=== PATIENT | male | born 1945 | race Caucasian/White ===

== ENCOUNTER 2017-05-07 15:49 | Emergency (ER) | payer MEDICARE, OTHER ==
[~2017-05-07] VITALS: Ht 172.7 cm; Wt 59.0 kg
[~2017-05-07 15:49] MED LIST: AMLODIPINE BESYL5 MG PO; ATORVASTATIN CA10 MG PO; FLOMAX0.4 MG PO; METOPROLOL PO; PANTOPRAZOLE SO40 MG PO
[2017-05-07 17:52] LABS: KETONES,URINE 2+ (NEGATIVE); LEUKOCYTE ESTERASE ,URINE NEGATIVE (NEGATIVE); NITRITE,URINE NEGATIVE (NEGATIVE); PROTEIN,URINE DIPSTICK 1+ (NEGATIVE); URINE UROBILINOGEN 4 mg/dL (0.2 - 1)
[2017-05-07 17:53] LABS: BILIRUBIN,URINE 1+ (NEGATIVE); CLARITY,URINE SL CLOUDY (CLEAR); COLOR,URINE YELLOW (YELLOW)
[2017-05-07 17:57] LABS: BACTERIA,URINE RARE /HPF; EPITHELIAL CELLS,URINE RARE /LPF
[2017-05-07] MEDS ORDERED: KETOROLAC TROMETHAMINE 30 MG/ML VIAL IV STA (18:55)
[2017-05-07] MEDS ORDERED: ACETAMINOPHEN/CODEINE 300MG - 30MG TAB PO ONE (19:00)
[2017-05-07] MEDS ORDERED: SODIUM CHLORIDE 0.9% 1000ML 1,000 ML IV SCH (19:00)
--- NOTE | 2017-05-07 20:23 | Diagnostic Imaging Report ---
RIBS UNILAT W/CXR - 5 views HISTORY: Status post fall. Right-sided pain. COMPARISON: 03/15/2016 FINDINGS: See below. IMPRESSION: Minimally displaced fracture of the posterolateral right 9th rib as well as nondisplaced fracture of the posterior 10th rib. No lung consolidation. No visible pneumothorax. Signed by: Dr. Gabe Love MD on 05/07/2017 8:20 PM
--- NOTE | 2017-05-07 20:25 | Diagnostic Imaging Report ---
THORACIC SPINE AP LA - 5 views HISTORY: Pain. Status post fall. COMPARISON: None available. FINDINGS: Limited by generalized demineralization. No acute displaced fracture. Osseous alignment is within normal limits. Vertebral body heights are maintained. Multilevel degenerative changes. IMPRESSION: No acute radiographic abnormality. Signed by: Dr. Gabe Love MD on 05/07/2017 8:22 PM
--- NOTE | 2017-05-07 20:27 | Diagnostic Imaging Report ---
Cervical Spine, 3 views HISTORY: Pain COMPARISON: None. FINDINGS: Limited sensitivity for detection of subtle fractures and ligamentous abnormalities. On the lateral view, the cervical spine is visualized from the skull base to C5. Limited for evaluation of C6 and C7 on lateral view. The alignment is normal. Vertebral body heights are maintained. No acute displaced fracture involving the visualized cervical spine. Unremarkable prevertebral soft tissues. IMPRESSION: Limited as above. Visualized cervical spine is unremarkable. Signed by: Dr. Gabe Love MD on 05/07/2017 8:23 PM
--- NOTE | 2017-05-07 20:29 | Diagnostic Imaging Report ---
Lumbar Spine Radiographs: 5 views HISTORY: Pain COMPARISON: None available. DISCUSSION: Some of the osseous structures are partially obscured by stool and bowel gas. There are five non-rib bearing lumbar vertebral bodies. The alignment of the spine is within normal limits. Vertebral body heights are maintained. No displaced fracture or compression deformity is identified. L5-S1 facet arthropathy. Degenerative changes, especially in the upper lumbar spine. Severe vascular calcifications. IMPRESSION: No acute radiographic abnormality. Degenerative changes. Signed by: Dr. Gabe Love MD on 05/07/2017 8:25 PM
[2017-05-07 21:12] VITALS: BP 162/80
== END 2017-05-07 21:23 | disposition home or self-care (01) ==
LOC: ER 15:49
DX: M54.6 Pain in thoracic spine (principal); S22.41XA Multiple fractures of ribs, right side, initial encounter for closed fracture; W01.198A Fall on same level from slipping, tripping and stumbling with subsequent striking against other object, initial encounter; Y92.003 Bedroom of unspecified non-institutional (private) residence as the place of occurrence of the external cause; I10 Essential (primary) hypertension; I51.9 Heart disease, unspecified; Z86.73 Personal history of transient ischemic attack (TIA), and cerebral infarction without residual deficits; Z85.46 Personal history of malignant neoplasm of prostate; F17.210 Nicotine dependence, cigarettes, uncomplicated
CPT/HCPCS: 71101; 72040; 72072; 72110; 81001; 87086; 99283; J1885; J7030

== ENCOUNTER 2018-05-08 14:34 | Emergency (ER) | payer MEDICARE ==
[~2018-05-08] VITALS: Ht 172.7 cm; Wt 59.0 kg
--- OUTSIDE RECORDS SUMMARY | 2018-05-08 14:36 | XMS REPORT ---
[facility] Address Unknown Phone Unavailable Care Team Providers Care Archivist [employer] History Name Role Phone Wilder MEEHAN Unavailable Unavailable Problems This patient has no known problems. Allergies, Adverse Reactions, Alerts This patient has no known allergies or adverse reactions. Medications This patient has no known medications. Results Test Description Test Time Test Comments Text Results Atomic Results Result Comments RIBS UNILAT W/CXR [place] [address] Patient Name: VALERIE ALFARO MR #: [id number] : 1945 Age/Sex: 71/M Req #: [id number] Adm Physician: Ordered by: SCOTT BASURTO NP Report #: [id number] Location: ER Room/Bed: Procedure: [id number] DX/RIBS UNILAT W/CXR Exam Date: 05/07/17 Exam Time: 1929 REPORT STATUS: Signed RIBS UNILAT W/CXR - 5 views HISTORY: Status post fall. Right-sided pain. COMPARISON: 03/15/2016 FINDINGS: See below. IMPRESSION: Minimally displaced fracture of the posterolateral right 9th rib as well as nondisplaced fracture of the posterior 10th rib. No lung consolidation. No visible pneumothorax. Signed by: Dr. Gabe Acharya MD on 05/07/2017 8:20 PM Dictated By: GABE ACHARYA MD 19 Transcribed By: KRISTEN on 05/07/172019 COPY TO: SCOTT BASURTO NP SP LUMBAR, COMPLETE MIN 4VW [place] [id number] [place] [address] Patient Name: VALERIE ALFARO MR #: [id number] : 1945 Age/Sex: 71/M Req #: [id number] Adm Physician: Ordered by: MARCEL MEEHAN MD Report #: [id number] Location: ER Room/Bed: Procedure: [id number] DX/SP LUMBAR, COMPLETE MIN 4VW Exam Date: 05/07/17 Exam Time: 1929 REPORT STATUS: Signed Lumbar Spine Radiographs: 5 views HISTORY: Pain COMPARISON: None available. DISCUSSION: Some of the osseous structures are partially obscured by stool and bowel gas. There are five non-rib bearing lumbar vertebral bodies. The alignment of the spine is within normal limits. Vertebral body heights are maintained. No displaced fracture or compression deformity is identified. L5-S1 facet arthropathy. Degenerative changes, especially in the upper lumbar spine. Severe vascular calcifications. IMPRESSION: No acute radiographic abnormality. Degenerative changes. Signed by: Dr. Gabe Acharya MD on 05/07/2017 8:25 PM Dictated By: GABE ACHARYA MD 24 Transcribed By: KRISTEN on 05/07/172024 COPY TO: MARCEL MEEHAN MD THORACIC SPINE AP LA [place] [address] Patient Name: VALERIE ALFARO MR #: [id number] : 1945 Age/Sex: 71/M Req #: [id number] Adm Physician: Ordered by: MARCEL MEEHAN MD Report #: [id number] Location: ER Room/Bed: Procedure: [id number] DX/THORACIC SPINE AP LA Exam Date: 05/07/17 Exam Time: 1929 REPORT STATUS: Signed THORACIC SPINE AP LA - 5 views HISTORY: Pain. Status post fall. COMPARISON: None available. FINDINGS: Limited by generalized demineralization. No acute displaced fracture. Osseous alignment is within normal limits. Vertebral body heights are maintained. Multilevel degenerative changes. IMPRESSION: No acute radiographic abnormality. Signed by: Dr. Gabe Acharya MD on 05/07/2017 8:22 PM Dictated By: GABE ACHARYA MD 21 Transcribed By: KRISTEN on 05/07/172021 COPY TO: MARCEL MEEHAN MD C-SPINE 2 VIEWS AP LATERAL [place] [address] Patient Name: VALERIE ALFARO MR #: [id number] : 1945 Age/Sex: 71/M Req #: [id number] Adm Physician: Ordered by: MARCEL MEEHAN MD Report #: [id number] Location: ER Room/Bed: Procedure: [id number] DX/C-SPINE 2 VIEWS AP LATERAL Exam Date: 05/07/17 Exam Time: 1929 REPORT STATUS: Signed Cervical Spine, 3 views HISTORY: Pain COMPARISON: None. FINDINGS: Limited sensitivity for detection of subtle fractures and ligamentous abnormalities. On the lateral view, the cervical spine is visualized from the skull base to C5. Limited for evaluation of C6 and C7 on lateral view. The alignment is normal. Vertebral body heights are maintained. No acute displaced fracture involving the visualized cervical spine. Unremarkable prevertebral soft tissues. IMPRESSION: Limited as above. Visualized cervical spine is unremarkable. Signed by: Dr. Gabe Acharya MD on 05/07/2017 8:23 PM Dictated By: GABE ACHARYA MD 22 Transcribed By: KRISTEN on 05/07/172022 COPY TO: MARCEL MEEHAN MD
--- NOTE | 2018-05-08 17:13 | Diagnostic Imaging Report ---
Exam: Left foot series, 3 views. Clinical History: Pain and swelling, bruise on the left Comparison: None. Findings: 3 views of the left foot. There is mildly decreased bone mineralization. Negative for acute, displaced fracture or dislocation. Mild degenerative changes in the first toe metatarsophalangeal joint. Mild soft tissue swelling in the dorsal aspect of the foot. Impression: 1. Mild soft tissue swelling in the dorsal aspect of the foot, without acute, displaced fracture or dislocation. Signed by: Dr. Agustín Santos M.D. on 05/08/2018 5:10 PM
--- NOTE | 2018-05-08 17:14 | Diagnostic Imaging Report ---
Exam: Left Ankle Series. History: Pain and swelling Comparison: None. DISCUSSION: 3 views of the left ankle. There is mildly decreased bone mineralization. No evidence of acute, displaced fracture or dislocation. Ankle mortise is preserved.No osteochondral lesion. No abnormal soft tissue calcification or mass. Moderate soft tissue swelling surrounding the ankle. IMPRESSION: 1. Moderate soft tissue swelling surrounding the ankle, without underlying acute, displaced fracture. The staff physician below has personally reviewed this exam on the date of dictation. Signed by: Dr. Agustín Santos M.D. on 05/08/2018 5:11 PM
== END 2018-05-08 19:33 | disposition home or self-care (01) ==
LOC: ER 14:34
DX: S93.432A Sprain of tibiofibular ligament of left ankle, initial encounter (principal); W10.8XXA Fall (on) (from) other stairs and steps, initial encounter; Y92.89 Other specified places as the place of occurrence of the external cause; I10 Essential (primary) hypertension; Z85.46 Personal history of malignant neoplasm of prostate; Z86.73 Personal history of transient ischemic attack (TIA), and cerebral infarction without residual deficits
CPT/HCPCS: 99284

== ENCOUNTER 2018-06-11 10:00 | Outpatient (RCR) | payer MEDICARE | END 2018-06-12 | LOC: PT 10:00 | PROVIDERS: ATTEND Orthopaedic Surgery | DX: S93.492A Sprain of other ligament of left ankle, initial encounter (principal); M25.572 Pain in left ankle and joints of left foot; M25.472 Effusion, left ankle; M25.672 Stiffness of left ankle, not elsewhere classified; M62.81 Muscle weakness (generalized) | CPT/HCPCS: 97139 ==

== ENCOUNTER → 2019-07-22 | Outpatient (CLI) | payer MEDICARE ==
--- NOTE | 2019-07-22 11:56 | Diagnostic Imaging Report ---
EXAMINATION: CHEST 2 VIEWS INDICATION: Cough COMPARISON: Chest radiograph 02/25/2019 FINDINGS: LINES/TUBES:None LUNGS:The lungs are hyperinflated. Bilateral upper lobe predominant emphysematous changes. Mild peripheral patchy opacities at both lung bases. PLEURA:No pleural effusion or pneumothorax. MEDIASTINUM:The cardiomediastinal silhouette appears unchanged in size and shape. Atherosclerotic calcifications of the thoracic aorta. BONES/SOFT TISSUES:No acute osseous injury. Unchanged bilateral old healed rib fractures. ABDOMEN:No free air under the diaphragm. IMPRESSION: Hyperinflated lungs with emphysematous changes. Mild peripheral patchy opacities at both lung bases may represent aspiration and/or pneumonia in the proper clinical setting. Signed by: Princess Vazquez MD on 07/22/2019 11:53 AM
== END ==
LOC: RAD 10:47
PROVIDERS: ATTEND Internal Medicine
DX: R05 Cough (principal)
CPT/HCPCS: 71046

== ENCOUNTER → 2019-09-10 | Outpatient (CLI) | payer MEDICARE ==
--- NOTE | 2019-09-10 11:29 | Diagnostic Imaging Report ---
CT of the chest. Comparison: 08/04/2019 Clinical History: Lower lobe infection Technique: Helical CT scan of the chest was performed from just above the thoracic inlet through the adrenal glands. Intravenous contrast administration was not utilized. Coronal and sagittal reconstructions were generated from the raw data. Multiple images were submitted for interpretation. This exam was performed according to our departmental dose-optimization program which includes automated exposure control, adjustment of the mA and/or kV according to patient size Discussion: Lung david: There is centrilobular emphysema most pronounced in the upper lobes. The lungs are hyperinflated. This also supports the diagnosis of emphysema. Importantly there are changes in the right lower lobe posterior basal segment have not changed significantly. There is presence of air space opacity with architectural distortion of the lung, spiculated margins and septal thickening. It is contiguous with the visceral pleura posteriorly. Another tiny area of opacity previously seen just lateral to this consolidation has improved. The previously seen tree-in-bud opacities have improved or largely resolved. The differential diagnosis includes infection and inflammation but neoplasm especially given presence of emphysema, needs to be ruled out. The subjacent pleural effusion has improved. Central airways: Unremarkable Pleural spaces and pleura: As above Pulmonary topher: Normal Mediastinum: Small mediastinal lymph nodes none of which meet the size criteria for abnormality. Cardiac chambers and pericardium: Coronary artery calcification. No significant cardiac abnormality. Pericardium unremarkable. Systemic great vessels: Atherosclerotic calcification of aorta and its major branches. Central pulmonary vessels: Unremarkable. Thyroid: Unremarkable Lymph nodes: As above Azygos vein: Markable The esophagus: Unremarkable. Thoracic duct: Unremarkable Osseous structures: Degenerative changes Upper abdomen: Unremarkable Body wall: Unremarkable Breasts: Minimal gynecomastia Axilla: Unremarkable Lower neck: Minimal atherosclerotic calcification of the left common carotid artery. Impression: No significant change in the large right lower lobe opacity compared to the CT done a month ago. The differential diagnosis includes infection and inflammation but a neoplasm should be ruled out. Tissue sampling may be considered. Signed by: Mehran Wilkerson MD on 09/10/2019 11:26 AM
== END ==
LOC: CT 09:36
PROVIDERS: ATTEND Internal Medicine Critical Care Medicine
DX: R91.8 Other nonspecific abnormal finding of lung field (principal)
CPT/HCPCS: 71250

== ENCOUNTER → 2019-10-26 | Outpatient (CLI) | payer MEDICARE, OTHER ==
[~2019-10-26] MED LIST changes: +FENTANYL CITRATE/PF 100MCG/2 ML INJ ONE; +MIDAZOLAM HCL 2 MG/2 ML VIAL ONE
[2019-10-26 13:01] LABS: HEMOGLOBIN 13.9 g/dL (14.0-18.0)
[2019-10-26 13:15] LABS: INR 0.89; PROTHROMBIN TIME 12.6 seconds (11.9-14.5)
[2019-10-26 13:16] LABS: PARTIAL THROMBOPLASTIN TIME 25.1 seconds (23.8-35.5)
--- NOTE | 2019-10-26 14:21 | Diagnostic Imaging Report ---
EXAM: Limited CT of the chest DATE: 10/26/2019 1:37 PM INDICATION: Right lower lobe opacity COMPARISON: CT chest without contrast from 09/10/2019 RADIATION DOSE: Total DLP: 431.89 mGy*cm Dose modulation, iterative reconstruction, and/or weight based adjustment of the mA/kV was utilized to reduce the radiation dose to as low as reasonably achievable. FINDINGS: The patient was placed prone within the CT gantry. Limited axial images of the chest were obtained for localization purposes. There is been significant reduction of the previously visualized right lower lobe opacity with minimal groundglass opacity remaining. No solid or nodular component remains. Findings are suggestive of a resolving infectious/inflammatory process. Percutaneous biopsy is no warranted. The remainder the examination is unchanged from the recent prior examination from 09/10/2019. IMPRESSION: Preprocedural CT images demonstrate significant reduction of previously visualized right lower lobe opacity with minimal groundglass opacity remaining. No solid/nodular component remains. Findings are compatible with a resolving infectious/inflammatory process. Subsequently, no biopsy was performed. Signed by: Dr. Ricardo Negrete MD on 10/26/2019 2:18 PM
== END | disposition home or self-care (01) ==
LOC: CT 09:52
PROVIDERS: ATTEND Internal Medicine Critical Care Medicine
DX: J44.9 Chronic obstructive pulmonary disease, unspecified (principal); Z01.812 Encounter for preprocedural laboratory examination; Z11.59 Encounter for screening for other viral diseases; Z53.9 Procedure and treatment not carried out, unspecified reason
CPT/HCPCS: 32405; 36415; 85014; 85049; 85610; 85730; 87635; J2250; J3010

== ENCOUNTER 2022-07-16 12:48 | Emergency (ER) | payer MEDICARE ==
[~2022-07-16] VITALS: Ht 167.6 cm; Wt 54.4 kg
[~2022-07-16 12:48] MED LIST changes: +ASPIRIN CHEW81 MG PO; +ATIVAN0.5 MG PO; +Atorvastatin PO; +BRILINTA90 MG PO; +Colchicine PO; -FENTANYL CITRATE/PF 100MCG/2 ML INJ ONE; +INDOMETHACIN75 MG PO; +MELATONIN3 MG PO; -MIDAZOLAM HCL 2 MG/2 ML VIAL ONE; +TOPROL XL25 MG PO; +TOPROL XL50 MG PO; +Valsartan/Sacubitril 24MG/26MG PO
[2022-07-16] MEDS ORDERED: NAPROXEN250 MG PO (14:40)
== END 2022-07-16 16:03 | disposition home or self-care (01) ==
LOC: ER 12:54
DX: M25.552 Pain in left hip (principal); I12.9 Hypertensive chronic kidney disease with stage 1 through stage 4 chronic kidney disease, or unspecified chronic kidney disease; E11.22 Type 2 diabetes mellitus with diabetic chronic kidney disease; N18.9 Chronic kidney disease, unspecified; E03.9 Hypothyroidism, unspecified; K76.9 Liver disease, unspecified; Z86.73 Personal history of transient ischemic attack (TIA), and cerebral infarction without residual deficits; Q90.9 Down syndrome, unspecified
CPT/HCPCS: 99283

== ENCOUNTER 2022-09-03 06:28 | Observation (INO) | payer MEDICARE ==
[2022-08-31 11:02] LABS: BASOPHILS # (AUTO) 0.1 (0.0-0.1); BASOPHILS % 0.7 % (0.0-1.0); EOSINOPHILS # (AUTO) 0.6 (0.0-0.4); EOSINOPHILS % 8.3 % (0.0-6.0); HEMATOCRIT 40.3 % (38.2-49.6); HEMOGLOBIN 12.3 g/dL (14.0-18.0); LYMPHOCYTES # (AUTO) 1.3 (1.0-3.2); LYMPHOCYTES % 19.2 % (18.0-39.1); MEAN CORPUSCULAR HEMOGLOBIN 28.3 pg (28-32); MEAN CORPUSCULAR HGB CONC 30.5 g/dL (31-35); MEAN CORPUSCULAR VOLUME 92.6 fL (81-99); MONOCYTES # (AUTO) 0.7 (0.2-0.8); NEUTROPHILS # (AUTO) 4.1 (2.1-6.9); NEUTROPHILS % 61.4 % (38.7-80.0); PLATELET COUNT 335 x10e3/uL (140-360); RED BLOOD COUNT 4.35 x10e6/uL (4.3-5.7); RED CELL DISTRIBUTION WIDTH 16.1 % (11.7-14.4)
[2022-08-31 11:24] LABS: ALBUMIN 3.1 g/dL (3.5-5.0); ALBUMIN/GLOBULIN RATIO 0.7 (0.8-2.0); ANION GAP 14.6 mmol/L (8-16); CALCIUM 9.4 mg/dL (8.4-10.2); CREATININE, SERUM 1.15 mg/dL (0.72-1.25); POTASSIUM 4.6 mmol/L (3.5-5.1)
[2022-08-31 11:43] LABS: INR 0.96; PROTHROMBIN TIME 13.3 seconds (11.9-14.5)
[2022-09-03] VITALS (29 sets, daily range): BP systolic 109–192; BP diastolic 54–87
[~2022-09-03] VITALS: Ht 172.7 cm; Wt 55.3 kg
[~2022-09-03 06:28] MED LIST changes: +NAPROXEN250 MG PO
[2022-09-03] MEDS ORDERED: LIDOCAINE HCL 2% LOCAL 20 ML VIAL ONE (07:07)
[2022-09-03] MEDS ORDERED: HEPARIN SOD (PORCINE) 1000 UNIT/ML 30ML ONE (07:07)
[2022-09-03] MEDS ORDERED: HEPARIN SOD/SOD CHLORIDE 2,000 ML ONE (07:08)
[2022-09-03] MEDS ORDERED: IOPAMIDOL 370 MG/ML 100 ML INFUS..BTL INJ ONE (07:08)
[2022-09-03] MEDS ORDERED: SODIUM CHLORIDE 0.9% 1000ML 1,000 ML ONE (07:08)
[2022-09-03] MEDS ORDERED: VERAPAMIL HCL 2.5 MG/ML 2 ML VIAL ONE (07:09)
[2022-09-03] MEDS ORDERED: NITROGLYCERIN/D5W 200 MCG/ML 250 ML ONE (07:09)
[2022-09-03] MEDS ORDERED: FENTANYL CITRATE/PF 100MCG/2 ML INJ ONE (07:10)
[2022-09-03] MEDS ORDERED: MIDAZOLAM HCL 2 MG/2 ML VIAL ONE (07:10)
[2022-09-03] MEDS ORDERED: ATROPINE SULFATE 0.1 MG/ML 10ML SYR IV PRN (11:30)
[2022-09-03] MEDS: TICAGRELOR 90 MG TABLET PO SCH (20:27)
[2022-09-03] MEDS ORDERED: ATORVASTATIN 40 MG TAB PO SCH (21:00)
[2022-09-04] VITALS (7 sets, daily range): BP systolic 146–172; BP diastolic 54–76
[2022-09-04] MEDS ORDERED: PANTOPRAZOLE SOD 40 MG TABEC PO SCH (07:30)
[2022-09-04] MEDS: TICAGRELOR 90 MG TABLET PO SCH (07:45)
[2022-09-04] MEDS ORDERED: ASPIRIN CHEW81 MG PO (08:12)
[2022-09-04] MEDS ORDERED: ASPIRIN EC81 MG PO (08:17)
[2022-09-04] MEDS ORDERED: TAMSULOSIN HCL 0.4 MG CAP PO SCH (09:00)
[2022-09-04] MEDS ORDERED: ASPIRIN 81 MG CHEW TAB PO SCH (09:00)
== END 2022-09-04 09:29 | disposition home or self-care (01) ==
LOC: CATH LAB 06:28 → INTOOBSV 17:18 → CATH LAB V 17:18 → ICU 17:39
PROVIDERS: ADMIT Internal Medicine Cardiovascular Disease; ATTEND Internal Medicine Cardiovascular Disease
DX: I25.110 Atherosclerotic heart disease of native coronary artery with unstable angina pectoris (principal); K21.9 Gastro-esophageal reflux disease without esophagitis; Z86.73 Personal history of transient ischemic attack (TIA), and cerebral infarction without residual deficits; G20 Parkinson's disease; I10 Essential (primary) hypertension; Z01.810 Encounter for preprocedural cardiovascular examination; Z01.812 Encounter for preprocedural laboratory examination; Z01.818 Encounter for other preprocedural examination; Z79.82 Long term (current) use of aspirin; Z79.899 Other long term (current) drug therapy
CPT/HCPCS: 93454; C9600; 36415; 71046; 80053; 85025; 85610; 85730; 92928; 93005; 99152; 99153; C1725; C1769; C1874; C1887; G0378; J1644; J2001; J2250; J7030; Q9967

== ENCOUNTER → 2022-11-06 | Outpatient (CLI) | payer MEDICARE ==
[~2022-11-06] MED LIST changes: +ASPIRIN EC81 MG PO
== END ==
LOC: RAD 10:05
PROVIDERS: ATTEND Internal Medicine Critical Care Medicine
DX: J44.9 Chronic obstructive pulmonary disease, unspecified (principal)
CPT/HCPCS: 71046

== ENCOUNTER 2023-05-23 15:34 | Inpatient (IN) | payer MEDICARE ==
[~2023-05-23] VITALS: Ht 172.7 cm; Wt 61.7 kg
[2023-05-23] MEDS ORDERED: ALBUTEROL SULF 0.083% NEB SOLN 3 ML NEB NEB STA (16:03)
[2023-05-23] MEDS ORDERED: IPRATROPIUM BROMIDE 0.02% 2.5 ML NEB NEB ONE (16:15)
[2023-05-23] MEDS ORDERED: METHYLPREDNISOLONE SOD SUCC 125 MG/2ML VIAL IV ONE (16:15)
[2023-05-23] MEDS ORDERED: IPRATROPIUM BROMIDE 0.02% 2.5 ML NEB ONE (16:18)
[2023-05-23] MEDS ORDERED: ALBUTEROL SULF 0.083% NEB SOLN 3 ML NEB ONE (16:19)
[2023-05-23] MEDS ORDERED: METHYLPREDNISOLONE SOD SUCC 125 MG/2ML VIAL ONE (16:35)
[2023-05-23] MEDS ORDERED: ONDANSETRON HCL INJ 2MG/ML 2ML 2 MG/ML VIAL IV PRN (17:30)
[2023-05-23] MEDS ORDERED: ASPIRIN 81 MG CHEW TAB PO ONE (17:30)
[2023-05-23] MEDS ORDERED: MAGNESIUM SULFATE 2GM/50ML 50 ML IV ONE ×2 (17:45→18:03)
[2023-05-23] MEDS ORDERED: ALBUTEROL SULF 0.083% NEB SOLN 3 ML NEB NEB PRN (17:45)
[2023-05-23] MEDS ORDERED: HYDRALAZINE HCL 20 MG/ML VIAL IV PRN (19:15)
[2023-05-23] MEDS ORDERED: ACETAMINOPHEN 325 MG TAB PO PRN (19:15)
[2023-05-23 20:00] VITALS: BP 145/70; PULSE 99; RESP 17; TEMP 97.5; O2SAT 95
[2023-05-23 20:57] VITALS: BP 138/71; PULSE 110; RESP 24; O2SAT 96
[2023-05-23] MEDS ORDERED: MELATONIN 3 MG TAB PO SCH (21:00)
[2023-05-23] MEDS: HEPARIN SOD (PORCINE) 5,000 UNIT/ML VIAL SC SCH (21:52)
[2023-05-24] VITALS (7 sets, daily range): BP systolic 122–125; BP diastolic 77–83; PULSE 77–92; RESP 17–18; TEMP 97.6–98; O2SAT 95–100
[2023-05-24] MEDS: ALBUTEROL SULF 0.083% NEB SOLN 3 ML NEB NEB SCH ×5 (01:07→10:03)
[2023-05-24] MEDS: HEPARIN SOD (PORCINE) 5,000 UNIT/ML VIAL SC SCH (05:34)
[2023-05-24 08:57] LABS: ANION GAP 13.2 mmol/L (8-16); CALCIUM 8.4 mg/dL (8.4-10.2); CREATININE, SERUM 1.15 mg/dL (0.72-1.25); POTASSIUM 4.2 mmol/L (3.5-5.1)
[2023-05-24] MEDS ORDERED: TICAGRELOR 90 MG TABLET PO SCH (09:00)
[2023-05-24] MEDS ORDERED: PANTOPRAZOLE SOD 40 MG TABEC PO SCH (09:00)
[2023-05-24] MEDS ORDERED: TAMSULOSIN HCL 0.4 MG CAP PO SCH (09:00)
[2023-05-24] MEDS ORDERED: METHYLPREDNISOLONE SOD SUCC 40 MG/ML VIAL 1ML IV SCH (09:00)
[2023-05-24] MEDS ORDERED: ASPIRIN 81 MG ENTERIC COATED PO SCH (09:00)
[2023-05-24] MEDS ORDERED: POLYETHYLENE GLYCOL 3350 17 GM PACK PO SCH (09:00)
[2023-05-24 09:06] LABS: TROPONIN I 0.048 ng/mL (0-0.300)
[2023-05-24] MEDS ORDERED: PREDNISONE20 MG PO (09:27)
[2023-05-24] MEDS ORDERED: VENTOLIN HFA18 GM INH (09:27)
[2023-05-24] MEDS ORDERED: ONDANSETRON HCL 4 MG ORAL DISINTEGRATING TAB PO PRN (09:45)
[2023-05-24 10:58] LABS: BASOPHILS % 0.2 % (0.0-1.0); HEMATOCRIT 41.7 % (38.2-49.6); HEMOGLOBIN 13.2 g/dL (14.0-18.0); LYMPHOCYTES # (AUTO) 0.5 (1.0-3.2); LYMPHOCYTES % 7.7 % (18.0-39.1); MEAN CORPUSCULAR HEMOGLOBIN 30.4 pg (28-32); MEAN CORPUSCULAR HGB CONC 31.7 g/dL (31-35); MEAN CORPUSCULAR VOLUME 96.1 fL (81-99); MONOCYTES # (AUTO) 0.2 (0.2-0.8); MONOCYTES % 2.6 % (4.4-11.3); NEUTROPHILS # (AUTO) 5.4 (2.1-6.9); NEUTROPHILS % 89.2 % (38.7-80.0); PLATELET COUNT 207 x10e3/uL (140-360); RED BLOOD COUNT 4.34 x10e6/uL (4.3-5.7); RED CELL DISTRIBUTION WIDTH 15.5 % (11.7-14.4); WHITE BLOOD COUNT 6.09 x10e3/uL (4.8-10.8)
[2023-05-24] MEDS ORDERED: ATORVASTATIN 40 MG TAB PO SCH (21:00)
== END 2023-05-24 12:38 | disposition home or self-care (01) | DRG 191 ==
LOC: FSED 15:39 → ERHOLD 17:33 → MED/SURG3 19:06
PROVIDERS: ADMIT Internal Medicine; ATTEND Internal Medicine
DX: J44.1 Chronic obstructive pulmonary disease with (acute) exacerbation (principal); J45.901 Unspecified asthma with (acute) exacerbation; N17.9 Acute kidney failure, unspecified; I50.9 Heart failure, unspecified; R00.0 Tachycardia, unspecified; I25.10 Atherosclerotic heart disease of native coronary artery without angina pectoris; I11.0 Hypertensive heart disease with heart failure; I89.0 Lymphedema, not elsewhere classified; E03.9 Hypothyroidism, unspecified; Z95.5 Presence of coronary angioplasty implant and graft; Q90.9 Down syndrome, unspecified; Z85.46 Personal history of malignant neoplasm of prostate; Z92.3 Personal history of irradiation; Z87.440 Personal history of urinary (tract) infections; Z89.029 Acquired absence of unspecified finger(s); Z86.73 Personal history of transient ischemic attack (TIA), and cerebral infarction without residual deficits
CPT/HCPCS: 0223U; 36415; 71045; 80048; 82550; 82553; 83880; 84484; 85025; 87400; 93005; 94640; 94799; 96374; 99252; 99284; J1644; J2920; J2930; J3475

== ENCOUNTER 2023-06-02 13:32 | Inpatient (IN) | payer MEDICARE ==
[2023-05-24 11:27] VITALS: PULSE 100; RESP 18
[~2023-06-02] VITALS: Ht 172.7 cm; Wt 63.8 kg
[~2023-06-02 13:32] MED LIST changes: +PREDNISONE20 MG PO; +VENTOLIN HFA18 GM INH
[2023-06-02] MEDS ORDERED: SODIUM CHLORIDE FLUSH 10 ML SYR INJ PRN (14:15)
[2023-06-02] MEDS: Vancomycin IV 1 GM in SODIUM CHLORIDE 0.9% 250ML 250 ML IV SCH ×2 (15:00→15:07)
[2023-06-02] MEDS ORDERED: SODIUM CHLORIDE 0.9% 250ML 250 ML ONE (15:04)
[2023-06-02] MEDS: ALBUTEROL/IPRATROPIUM 3 ML NEB NEB PRN ×2 (15:04→15:35)
[2023-06-02] MEDS ORDERED: ALBUTEROL/IPRATROPIUM 3 ML NEB ONE (15:04)
[2023-06-02] MEDS ORDERED: PIPERACILLIN/TAZOBACTAM 3.375 GM VIAL ONE (15:04)
[2023-06-02] MEDS ORDERED: Vancomycin IV 1 GM VIAL ONE (15:05)
[2023-06-02 15:40] VITALS: O2SAT 92
== END 2023-06-02 16:10 | disposition left against medical advice (07) | DRG 603 ==
LOC: FSED 13:56 → ERHOLD 14:13 → UNDOADMIN 14:16 → FSED 15:40 → ERHOLD 17:57
PROVIDERS: ADMIT Internal Medicine; ATTEND Internal Medicine
DX: L03.116 Cellulitis of left lower limb (principal); I89.0 Lymphedema, not elsewhere classified; Z53.29 Procedure and treatment not carried out because of patient's decision for other reasons; J44.9 Chronic obstructive pulmonary disease, unspecified; R09.02 Hypoxemia; R00.0 Tachycardia, unspecified; E11.51 Type 2 diabetes mellitus with diabetic peripheral angiopathy without gangrene; F17.200 Nicotine dependence, unspecified, uncomplicated; E03.9 Hypothyroidism, unspecified; Z86.73 Personal history of transient ischemic attack (TIA), and cerebral infarction without residual deficits; Z79.899 Other long term (current) drug therapy; Z79.52 Long term (current) use of systemic steroids; Z79.02 Long term (current) use of antithrombotics/antiplatelets
CPT/HCPCS: 0223U; 80053; 85025; 87040; 99284; J2543; J7050

== ENCOUNTER 2023-09-09 15:10 | Outpatient (RCR) | payer MEDICARE, OTHER ==
[~2023-09-09 15:10] MED LIST changes: +AZITHROMYCIN250 MG PO; +MINERAL OIL/PETROLAT/GLYCERI 6OZ BTL ONE; +SILVER SULFADIAZINE 50GM CREAM ONE
== END 2023-09-10 ==
LOC: WCC 15:10
PROVIDERS: ATTEND Podiatrist Foot & Ankle Surgery
DX: I87.331 Chronic venous hypertension (idiopathic) with ulcer and inflammation of right lower extremity (principal); I87.332 Chronic venous hypertension (idiopathic) with ulcer and inflammation of left lower extremity; L97.819 Non-pressure chronic ulcer of other part of right lower leg with unspecified severity; L97.829 Non-pressure chronic ulcer of other part of left lower leg with unspecified severity